=== PATIENT | male | born 1990 | race American Indian/Alaskan Native ===

== ENCOUNTER 2017-11-24 11:12 | Emergency (ER) | payer SELFPAY ==
[2017-11-24 11:41] LABS: Basophils % (Auto) 0.8 % (0.0-1.8); Eosinophils # (Auto) 0.4 K/mm3 (0.0-0.4); Eosinophils % (Auto) 7.4 % (0.0-4.3); Hematocrit 43.5 % (35.5-45.6); Hemoglobin 14.5 gm/dl (11.8-15.2); Lymphocytes # (Auto) 1.6 K/mm3 (1.2-5.4); Lymphocytes % (Auto) 32.4 % (13.4-35.0); Mean Corpuscular HGB Conc 33 % (32-34); Mean Corpuscular Hemoglobin 30 pg (28-32); Mean Corpuscular Volume 89 fl (84-94); Monocytes # (Auto) 0.3 K/mm3 (0.0-0.8); Monocytes % (Auto) 5.7 % (0.0-7.3); Platelet Count 217 K/mm3 (140-440); Red Blood Count 4.88 M/mm3 (3.65-5.03); Red Cell Distribution Width 12.8 % (13.2-15.2)
[2017-11-24 12:01] LABS: BUN/Creatinine Ratio 11; Blood Urea Nitrogen 10 mg/dL (9-20); Calcium 9.3 mg/dL (8.4-10.2); Hemolysis Index 8
[2017-11-24 12:15] LABS: Bilirubin,Urine NEG (Negative); Blood,Urine NEG (Negative); Color,Urine Yellow (Yellow); Mucus,Urine FEW /HPF; Protein,Urine <15 mg/dL mg/dL (Negative)
[2017-11-24 12:24] LABS: Amphetamine Screen,Urine PRESUMPTIVE NEGATIVE; Benzodiazepines Screen,Urine PRESUMPTIVE NEGATIVE; Cocaine Screen,Urine PRESUMPTIVE NEGATIVE; Methadone Screen,Urine PRESUMPTIVE NEGATIVE; Opiate Screen,Urine PRESUMPTIVE NEGATIVE
[2017-11-24 12:48] LABS: Cannabinoid Screen,Urine PRESUMPTIVE POSITIVE
--- NOTE | 2017-11-24 17:36 | Emergency Department Report ---
ED Psych HPI - General Chief Complaint: Psych Stated Complaint: DEPRESSED/SUICIDAL THOUGHTS/BODY HARM Time Seen by Provider: 11/24/17 17:17 Source: patient, family Mode of arrival: Ambulatory - History of Present Illness Initial Comments: Mr. Rider is a 26 years old male with history of depression. Patient presented to the ER complaining of suicidal ideation for months but patient reported that it is getting worse today. Patient denied any auditory or visual hallucination. Patient had a previous suicidal attempt in May 2017 but he did not seek any medication. Patient does have a plan, he stated that he'll take Xanax and will end it all. Patient also reported homicidal ideation to anybody. Patient stated that he is going through a lot of issues now especially court problem and he has a court trial coming up. Complaint: suicidal ideation, feels depressed -: week(s) Associated Psychiatric Symptoms: depression, suicidal ideation Quality: constant Improves With: none Worsens With: none Associated Symptoms: denies other symptoms Treatments Prior to Arrival: none If Self Harm: admits thoughts of, has plan, intentional overdose - Related Data Home Medications Medication Instructions Recorded Confirmed Last Taken Zolmitriptan [Zomig] 02/25/13 02/25/13 02/15/13 Allergies Allergy/AdvReac Type Severity Reaction Status Date / Time Penicillins Allergy Rash Verified 02/25/13 22:55 ED Review of Systems ROS: Stated complaint: DEPRESSED/SUICIDAL THOUGHTS/BODY HARM Other details as noted in HPI Comment: All other systems reviewed and negative Constitutional: denies: chills, fever Respiratory: denies: cough, orthopnea, shortness of breath, SOB with exertion, SOB at rest, wheezing Cardiovascular: denies: chest pain, palpitations, dyspnea on exertion Gastrointestinal: denies: abdominal pain, nausea, vomiting, diarrhea, constipation, hematemesis, melena, hematochezia Genitourinary: denies: urgency, dysuria, frequency Neurological: denies: headache, weakness, numbness, paresthesias, confusion, abnormal gait Psychiatric: depression, homicidal thoughts, suicidal thoughts. denies: anxiety , auditory hallucinations, visual hallucinations ED Past Medical Hx - Past Medical History Previous Medical History?: Yes Hx Headaches / Migraines: Yes Hx Psychiatric Treatment: Yes (depression, suicide attempt) Hx Asthma: Yes - Surgical History Past Surgical History?: No - Social History Smoking Status: Light Tobacco Smoker Substance Use Type: Alcohol, Marijuana - Medications Home Medications: Home Medications Medication Instructions Recorded Confirmed Last Taken Type Zolmitriptan [Zomig] 02/25/13 02/25/13 02/15/13 History ED Physical Exam - General Limitations: No Limitations General appearance: alert, in no apparent distress, other (depressed) - Head Head exam: Present: atraumatic, normocephalic, normal inspection - Eye Eye exam: Present: normal appearance, PERRL - ENT ENT exam: Present: normal exam, normal orophraynx, mucous membranes moist, normal external ear exam - Neck Neck exam: Present: normal inspection, full ROM. Absent: tenderness, meningismus, lymphadenopathy, thyromegaly - Respiratory Respiratory exam: Present: normal lung sounds bilaterally. Absent: respiratory distress, wheezes, rales, rhonchi, stridor, chest wall tenderness, accessory muscle use, decreased breath sounds, prolonged expiratory - Cardiovascular Cardiovascular Exam: Present: regular rate, normal rhythm, normal heart sounds - GI/Abdominal GI/Abdominal exam: Present: soft, normal bowel sounds. Absent: distended, tenderness, guarding, rebound, rigid, organomegaly, bruit, pulsatile mass, hernia - Extremities Exam Extremities exam: Present: normal inspection, full ROM, normal capillary refill - Back Exam Back exam: Present: normal inspection, full ROM. Absent: tenderness, CVA tenderness (R), CVA tenderness (L), muscle spasm, paraspinal tenderness, vertebral tenderness, rash noted - Neurological Exam Neurological exam: Present: alert, oriented X3, CN II-XII intact, normal gait, reflexes normal - Psychiatric Psychiatric exam: Present: depressed, homicidal ideation, suicidal ideation. Absent: agitated, anxious, flat affect, manic - Skin Skin exam: Present: warm, intact, normal color ED Course Vital Signs 11/24/17 11:20 Temperature 99.1 F Pulse Rate 77 Respiratory 18 Rate Blood Pressure 121/78 O2 Sat by Pulse 100 Oximetry ED Medical Decision Making - Lab Data Result diagrams: 11/24/17 11:27 11/24/17 11:27 Critical care attestation.: If time is entered above; I have spent that time in minutes in the direct care of this critically ill patient, excluding procedure time. ED Disposition Clinical Impression: Depression, Suicidal ideation, Homicidal ideation Disposition: [id number]/TX-[id number] PSY HOSP/PSY UNIT Is pt being admited?: No Condition: Stable Referrals: PRIMARY CARE, [Primary Care Provider] - 3-5 Days
[2017-11-25 10:27] VITALS: BP 133/72
--- NOTE | 2017-11-25 15:12 | Consultation ---
History of Present Illness - Reason for Consult Consult date: 11/25/17 Reason for consult: Mental Health Evaluation Requesting physician: DENITA CASTILLO - Chief Complaint Chief complaint: "I didn't say or do anything" - History of Present Psychiatric Illness 26 years old male with history of depression presenting to the ER for SI's for months. Today the patient is calm and cooperative during the assessment. He stated that he is going through some tough things reference legal issues. He stated that he told his mother he was feeling down and sad about things in his life. He stated that he isn't suicidal, but did acknowledge a previous overdose May 2017 because he was stressed about a family member dying. Per collateral information from his mother Ms May Drew at [phone], she stated that her son was never suicidal when she brought him to the ER. She stated that he wanted to talk with a mental health staff member because he was feeling "a little overwhelmed" and possibly get a referral to outpatient psy services ( therapist). She stated that she feel safe her son to return home once discharged. The patient denies SI/HI's and AVH's. He denies erratic sleep and a poor appetite. He acknowledged marijuana use often, but denies alcohol consumption (etoh). Medications and Allergies Allergies Allergy/AdvReac Type Severity Reaction Status Date / Time Penicillins Allergy Rash Verified 02/25/13 22:55 Home Medications Medication Instructions Recorded Confirmed Last Taken Type Zolmitriptan [Zomig] 2.5 mg PO DAILY 02/25/13 11/24/17 02/15/13 History Past psychiatric history - Past Medical History Past Medical History: No medical history Past Surgical History: No surgical history - past Psychiatric treatment and history psychiatric treatment history: A previous suicide attempt in May 2017. Denies a fam psy hx. - Social History Social history: lives with family Mental Status Exam - Vital signs Last Vital Signs Temp 98.2 F 11/25/17 10:19 Pulse 71 11/25/17 10:19 Resp 16 11/25/17 10:19 BP 133/72 11/25/17 10:19 Pulse Ox 99 11/25/17 10:19 - Exam Narrative exam: MSE: Appearance: calm, cooperative Behavior: regular eye contact Speech: regular rate and tone Mood: "okay" Affect: congruent to mood Thought Process: linear Thought Content: denies HI's and AVH's Motor Activity: ambulatory Cognition: A/O x 3 Insight: appropriate Judgment: appropriate Results Result Diagrams: 11/24/17 11:27 11/24/17 11:27 All other labs normal. Assessment and Plan Assessment and plan: Impression: Adjustment DO. Cannabis Use DO. Today the patient is calm and cooperative during the assessment. The patient is no threat to self. DDx: R/O MDD Recommendation/Plan: Rescind 1013. The patient can follow up with [facility] for outpatient psy services (therapy). Discussed the importance to abstain from recreational drug use.
--- NOTE | 2017-11-25 16:11 | Emergency Department Report ---
Blank Doc - Documentation Documentation: Patient is a 26-year-old gentleman who presented yesterday for possible suicidal ideations. Patient states to the mental health ext js developer who saw him today. He was never suicidal and that he just has been under a lot of stress and stated that occasionally he does have feelings where he feels like is gone and it all. Patient states he just wanted to come here and talked to a mental health professional. Patient is adamant today that he is not homicidal or suicidal. Mental health assessors also spoke with his mother who stated that he did not mention any suicidality acutely yesterday to her and the patient has signed and safety contract. Patient's head is 1013% did an mental health assessors have signed off on the patient. Patient be discharged home and does have follow-up with the [facility] tomorrow
== END 2017-11-25 16:54 | disposition home or self-care (01) ==
LOC: ED 11:12
DX: F32.9 Major depressive disorder, single episode, unspecified (principal); G43.909 Migraine, unspecified, not intractable, without status migrainosus; J45.909 Unspecified asthma, uncomplicated; F17.200 Nicotine dependence, unspecified, uncomplicated; F12.90 Cannabis use, unspecified, uncomplicated; Z88.0 Allergy status to penicillin
CPT/HCPCS: 36415; 80048; 80307; 81001; 85025; 99284; G0480; 80320